=== PATIENT | male | born 1995 | race Caucasian/White ===

== ENCOUNTER 2018-08-18 11:28 | Emergency (ER) | payer BC ==
[2018-08-18] MEDS ORDERED: LORazepam 1 MG TAB PO ONE (11:40)
--- NOTE | 2018-08-18 11:42 | EDPHY ---
H & P Stated Complaint: SOB, CP, anxiety Time Seen by Provider: 08/18/18 11:37 HPI/ROS: CHIEF COMPLAINT: "I am having a panic attack" HISTORY OF PRESENT ILLNESS: 23-year-old male , last used intranasal cocaine 2 nights ago, no cardiac or vasculopathy history, arrives via private vehicle complaining of chest pain, dyspnea, palpitations, hyperventilation while he was at work today. Started approximately 2 hr ago. He describes a feeling like prior anxiety attacks. Prior history of similar. No back pain. No abdominal pain. No nausea or vomiting. No headache. No trauma history. No peripheral edema. REVIEW OF SYSTEMS: 10 systems reviewed and negative with the exception of the elements mentioned in the history of present illness PAST MEDICAL & SURGICAL HISTORY: anxiety and panic attacks SOCIAL HISTORY: Positive for intranasal cocaine use 2 nights ago. Positive for heavy alcohol use 2 nights ago. FAMILY HISTORY: No family history of premature coronary disease or vasculopathy PHYSICAL EXAM (Prior to examination, patient consented to physical exam, hands were washed and my usual and customary physical exam procedures followed) 1) GENERAL: Well-developed, well-nourished, alert and oriented. Appears anxious 2) HEAD: Normocephalic, atraumatic 3) HEENT: Pupils equal, round, reactive to light bilaterally. Sclera anicteric. Nasopharynx, oropharynx, clear, no lesions. Moist Mucous membranes. Ears bilaterally with normal tympanic membranes. 4) NECK: Full range of motion, no meningeal signs. 5) LUNGS: Clear auscultation bilaterally, no wheezes, no rhonchi, no retractions. 6) HEART: Regular rate and rhythm, no murmur, no heave, no gallop. 7) ABDOMEN: No guarding, no rebound, no focal tenderness, negative McBurney's, negative Rodriguez's, negative Rovsing's, negative peritoneal sign, 8) MUSCULOSKELETAL: Carpal pedal spasm noted. Moving all extremities, no focal areas of tenderness, no obvious trauma. No peripheral edema or discoloration. 9) BACK: No CVA tenderness, no midline vertebral tenderness, no fluctuance, no step-off, no obvious trauma, no visual or palpable abnormality. 10) SKIN: No rash, no petechiae. 11) Psychiatric: Patient is oriented X 3, there is no agitation. DIFFERENTIAL DIAGNOSIS: In no particular order, including but not limited to myocardial ischemia, acute anxiety attack, pulmonary embolus, chest wall pain, pleural inflammation and pulmonary infectious causes. - Personal History Current Tetanus/Diphtheria Vaccine: Unsure Current Tetanus Diphtheria and Acellular Pertussis (TDAP): Unsure - Medical/Surgical History Hx Asthma: No Hx Chronic Respiratory Disease: No Hx Diabetes: No Hx Cardiac Disease: No Hx Renal Disease: No Hx Cirrhosis: No Hx Alcoholism: No Hx HIV/AIDS: No Hx Splenectomy or Spleen Trauma: No Other PMH: denies - Social History Smoking Status: Former smoker Constitutional: Initial Vital Signs Heart Rate 88 08/18/18 11:32 Respiratory Rate 24 H 08/18/18 11:32 Blood Pressure 130/95 H 08/18/18 11:32 O2 Sat (%) 100 08/18/18 11:32 O2 Delivery Mode Room Air Allergies/Adverse Reactions: No Known Allergies Allergy (Unverified 08/18/18 11:32) Home Medications: Medication Instructions Recorded LORazepam [Ativan 1 mg (RX)] 1 mg PO Q6 PRN #2 tab 08/18/18 Medical Decision Making ED Course/Re-evaluation: Care of patient under supervision of secondary supervising physician Dr Gagan Venegas with whom I discussed case. 12:48 p.m.: Re-evaluation, feeling improvement after oral Ativan. Doubt acute cardiac syndrome. Recommend no further cocaine use. Plan will be discharge home. Given prescription for Ativan #2 tablets. My usual and customary discharge precautions instructions provided. - Data Points Laboratory Results: Laboratory Results 08/18/18 11:55 08/18/18 11:55 08/18/18 08/18/18 08/18/18 11:58 11:55 11:55 WBC 5.87 10^3/uL 10^3/uL (3.80-9.50) RBC 5.16 10^6/uL 10^6/uL (4.40-6.38) Hgb 16.1 g/dL g/dL (13.7-17.5) Hct 46.5 % % (40.0-51.0) MCV 90.1 fL fL (81.5-99.8) MCH 31.2 pg pg (27.9-34.1) MCHC 34.6 g/dL g/dL (32.4-36.7) RDW 12.4 % % (11.5-15.2) Plt Count 260 10^3/uL 10^3/uL (150-400) MPV 10.0 fL fL (8.7-11.7) Neut % (Auto) 57.7 % % (39.3-74.2) Lymph % (Auto) 25.6 % % (15.0-45.0) [place] % (Auto) 8.0 % % (4.5-13.0) Eos % (Auto) 7.0 % % (0.6-7.6) Baso % (Auto) 1.5 % % (0.3-1.7) Nucleat RBC Rel Count 0.0 % % (0.0-0.2) Absolute Neuts (auto) 3.39 10^3/uL 10^3/uL (1.70-6.50) Absolute Lymphs (auto) 1.50 10^3/uL 10^3/uL (1.00-3.00) Absolute Monos (auto) 0.47 10^3/uL 10^3/uL (0.30-0.80) Absolute Eos (auto) 0.41 10^3/uL H 10^3/uL (0.03-0.40) Absolute Basos (auto) 0.09 10^3/uL 10^3/uL (0.02-0.10) Absolute Nucleated RBC 0.00 10^3/uL 10^3/uL (0-0.01) Immature Gran % 0.2 % % (0.0-1.1) Immature Gran # 0.01 10^3/uL 10^3/uL (0.00-0.10) Sodium 141 mEq/L mEq/L (135-145) Potassium 3.4 mEq/L L mEq/L (3.5-5.2) Chloride 108 mEq/L mEq/L (97-110) Carbon Dioxide 21 mEq/l L mEq/l (22-31) Anion Gap 12 mEq/L mEq/L (6-14) BUN 11 mg/dL mg/dL (7-23) Creatinine 1.0 mg/dL mg/dL (0.7-1.3) Estimated GFR > 60 Glucose 115 mg/dL H mg/dL (70-100) Calcium 9.9 mg/dL mg/dL (8.5-10.4) POC Troponin I 0.00 ng/mL ng/mL (0.00-0.08) Medications Given: Discontinued Medications Lorazepam (Ativan) 1 mg PO EDNOW ONE Stop: 08/18/18 11:41 Last Admin: 08/18/18 11:41 Dose: 1 mg Point of Care Test Results: Chemistry 08/18/18 11:58 POC Troponin I 0.00 ng/mL ng/mL (0.00-0.08) Departure - Departure Disposition: Home, Routine, Self-Care Clinical Impression: Anxiety, Cocaine abuse Condition: Good Instructions: Anxiety (ED) Additional Instructions: Do not use cocaine. Seek medical attention if you develop new or worsening chest pain, if you develop new or worsening shortness of breath, or any other symptoms that concern you. Referrals: [facility],. [Clinic] - 1-2 days without fail Prescriptions: LORazepam [Ativan 1 mg (RX)] 1 mg PO Q6 PRN #2 tab PRN Reason: Anxiety
[2018-08-18 12:06] LABS: PLATELET COUNT 260 10^3/uL (150-400)
--- NOTE | 2018-08-18 12:10 | CPEKG ---
Test Reason : OPEN Blood Pressure : / mmHG Vent. Rate : 076 BPM Atrial Rate : 080 BPM P-R Int : 163 ms QRS Dur : 099 ms QT Int : 389 ms P-R-T Axes : 079 070 064 degrees QTc Int : 438 ms Sinus rhythm Confirmed by Gagan Venegas ([id number]) on 08/18/2018 12:09:39 PM Referred By: Confirmed By:Gagan Venegsa
[2018-08-18 12:58] VITALS: BP 128/76
== END 2018-08-18 12:58 | disposition home or self-care (01) ==
DX: F14.180 Cocaine abuse with cocaine-induced anxiety disorder (principal); F10.920 Alcohol use, unspecified with intoxication, uncomplicated; Z87.891 Personal history of nicotine dependence
CPT/HCPCS: 84484-ER